=== PATIENT | female | born 1975 | race Hispanic/Latino ===

== ENCOUNTER 2017-10-24 11:18 | Emergency (ER) | payer MEDICAID, SELFPAY ==
[2017-10-24 11:47] LABS: #Basophils 0.1 thou/uL (0.0-0.2); #Lymphocytes 1.5 thou/uL (1.20-3.40); #Monocytes 0.4 thou/uL (0.11-0.59); #Neutrophils 8.7 thou/uL (1.40-6.50); %Basophils 0.9 % (0.0-1.0); %Eosinophils 0.4 % (0.0-10.0); %Lymphocytes 13.8 % (21.0-51.0); %Monocytes 3.9 % (0.0-10.0); Hemoglobin 13.8 g/dL (12.0-16.0); Mean Corpuscular HGB CONC 33.9 g/dL (32.0-36.0); Mean Corpuscular Hemoglobin 31.7 pg (27.0-31.0); Mean Corpuscular Volume 93.4 fl (81.0-99.0); Mean Platelet Volume 8.1 fL (7.4-10.4); Platelet Count 255 thou/uL (130-400); RBC Distribution Width 11.7 % (11.5-14.5); Red Blood Cell (RBC) Count 4.37 mill/uL (4.20-5.40); White Blood Cell (WBC) Count 10.7 thou/uL (4.8-10.8)
[2017-10-24 11:50] LABS: Bilirubin Negative (Negative); Blood, Urine Small (Negative); Clarity CLOUDY (Clear); Glucose, Urine (Dipstick) Negative (Negative); Leukocyte Negative (Negative); Nitrite Negative (Negative); Protein, Urine (Dipstick) 100 mg/dL (Neg-Trace); Specific Gravity, Urine 1.019 (1.002-1.036); pH, Urine 8.5 (5.0-9.0)
[2017-10-24 11:51] LABS: Bacteria/HPF 1+ HPF (None Seen); Hyaline Casts/LPF 0-3 HYALINE CAST LPF (0-3 Hyaline); WBC/HPF 0-3 HPF (0-3)
[2017-10-24 11:54] LABS: Specific Gravity 1.019 (1.002-1.036)
[2017-10-24 11:56] LABS: Pregnancy Test - Urine (BHCG) Negative (Negative); Pregu Control Background? CLEAR/WHITE (CLR/WHITE); Pregu Control Bar Appear? YES (CONTROL BAR)
[2017-10-24 12:06] LABS: Crystals/HPF 1+ AMORPH PHOS HPF (Negative)
[2017-10-24 12:12] LABS: ALT (SGPT) 15 U/L (8-55); AST (SGOT) 16 U/L (5-34); Albumin 4.4 g/dL (3.5-5.0); Alkaline Phosphatase 104 U/L (40-150); Anion Gap 12 mmol/L (10-20); BUN (Urea Nitrogen) 10 mg/dL (7.0-18.7); Bilirubin, Total 0.6 mg/dL (0.2-1.2); Calc. Creatinine Clearance 0 mL/min (70-130); Calcium 9.5 mg/dL (7.8-10.44); Carbon Dioxide 26 mmol/L (22-29); Chloride 101 mmol/L (98-107); Estimated GFR-MDRD Greater than 90; Globulin 3.8 g/dL (2.4-3.5); Glucose 121 mg/dL (70-105); Lipase 22 U/L (8-78); Potassium 3.7 mmol/L (3.5-5.1); Protein, Total 8.2 g/dL (6.0-8.3); Sodium 135 mmol/L (136-145)
--- NOTE | 2017-10-24 13:00 | CT ---
ABDOMEN AND PELVIC CT SCAN WITH IV CONTRAST: Date: 10/24/17 HISTORY: 42-year-old female with abdominal pain and vomiting. Prior cholecystectomy 20 years ago. FINDINGS: The lung bases are clear. The visualized liver, pancreas, spleen, and adrenal glands are unremarkable . No renal calculus or acute obstruction. No evidence for biliary tree dilatation. There is a norm al appearing appendix. IUD within the uterus. 2.8 cm left ovarian follicle cyst. IMPRESSION: Status post cholecystectomy. Normal appearing appendix. No renal calculus or obstruction. IUD in p lace. Small left ovarian follicle cyst. POS: [facility]
[2017-10-24] MEDS ORDERED: Ondansetron HCl/PF 4 MG/2 ML Vial ONE (13:12)
[2017-10-24] MEDS ORDERED: Morphine 2 MG/ML SYRINGE ONE (13:12)
[2017-10-24] MEDS ORDERED: Lidocaine Viscous Sol 2% 15 ml UD Cup ONE (13:49)
[2017-10-24] MEDS ORDERED: Mag-Al 1200 mg/1200 mg/30 ML UDCUP ONE (13:49)
[2017-10-24] MEDS ORDERED: ISOVUE-370 76%-LOCM 1 ML ONE (15:43)
== END 2017-10-24 14:24 | disposition home or self-care (01) ==
LOC: ERS 11:18
DX: R10.13 Epigastric pain (principal)
CPT/HCPCS: 36415; 74177; 80053; 81003; 81015; 81025; 83690; 85025; 96361; 96374; 96375; J2270; J2405